=== PATIENT | female | born 1945 | race Caucasian/White ===

== ENCOUNTER 2016-07-26 07:04 | Day surgery (SDC) | payer MEDICARE, OTHER ==
[~2016-07-26] VITALS: Ht 154.9 cm; Wt 52.3 kg
--- NOTE | ~2016-07-26 | OP ---
PATIENT NAME: IRVIN ACOSTA MEDICAL RECORD: [id number] :47 LOCATION:D.OPS ADMISSION DATE: SURGEON: SONDRA GOTTLIEB DO DATE OF OPERATION: 07/26/2016 PROCEDURE: EGD with biopsies. INDICATIONS FOR PROCEDURE: Epigastric abdominal pain, diarrhea, heartburn, nausea, gas and bloating. SCOPE: Olympus video gastroscope. MEDICATIONS: Propofol 80 mg IV per anesthesia. ESTIMATED BLOOD LOSS: Minimal. FINDINGS: Informed consent was given. The patient was made comfortable with the above medication. After reaching an adequate level of sedation by slow IV push, the patient was placed on her left side. The endoscope was then advanced under direct visualization through the mouth to the second portion of the duodenum. The upper, middle, and lower thirds of the esophagus appeared normal. At the GE junction, there was some evidence of mild LA class A reflux induced esophagitis. The endoscope was advanced through the GE junction and retroflexed to view the cardia, where a large hiatal hernia was visualized. This was a sliding type hernia, which measured approximately 7 cm in length. The fundus and body of the stomach appeared normal. In the antrum, there was some granularity and erythema consistent with possible gastritis. Random biopsies were taken from the antrum, incisura, and body of the stomach to rule out H. pylori and to submit for histology. The scope was advanced beyond the pylorus into the duodenum where the bulb and second portion of the duodenum appeared normal. Random biopsies were taken of the small bowel. Scope was then withdrawn from the patient. The patient tolerated the procedure well and there were no complications. IMPRESSION: 1. Reflux esophagitis grade A. 2. Large, approximately 7 cm, hiatal hernia involving the cardia. 3. Erythema and granularity consistent with gastritis with biopsies pending. 4. Normal duodenum. Biopsies taken. PLAN AND RECOMMENDATIONS: 1. Discharge home when recovery parameters are met. 2. Continue current medications. 3. Gastroesophageal reflux disease diet and reflux precautions. 4. Recommend a low FODMAP diet regarding the gas and bloating. 5. Consider probiotics. 6. Recommend supplementing diet with fiber 1-2 tablespoons daily. TRANSINT:[id number] Voice Confirmation ID: [id number] DOCUMENT ID: [id number] OPERATIVE REPORT [id number] KARLACORYHoward Landaverde SONDRA GOTTLIEB DO CC: [id number] DICTATION DATE: 07/26/16 0944 [employer] MANAGER: 07/26/16 1722 [facility] 07/26/16 [facility] [address] [id number]
[~2016-07-26 07:04] MED LIST: ASPIRIN325 MG PO; KLONOPIN1 MG PO; LEXAPRO10 MG PO; NICODERM C1 PATCH .1; NORVASC10 MG PO; PLAVIX75 MG PO; PREMARIN0.3 MG PO; PROTONIX40 MG PO; SYNTHROID50 MCG PO; TOPROL XL100 MG PO; ZETIA10 MG PO
[2016-07-26] MEDS ORDERED: VENTOLIN HFA18 GM INH (07:50)
[2016-07-26] MEDS ORDERED: NITROQUICK0.4 MG (07:51)
[2016-07-26] MEDS ORDERED: LAMISIL250 MG PO (07:52)
[2016-07-26 07:57] VITALS: BP 142/68; Ht 154.9 cm; Wt 52.3 kg
[2016-07-26 08:44] LABS: HEMATOCRIT 39.1 % (36.0-48.0); HEMOGLOBIN 12.9 g/dL (12-16); MCH 31.2 pg (26.0-34.0); MCV 94.7 fL (80.0-100.0); MEAN PLATELET VOLUME 9.8 fL (7.4-10.4); RBC 4.13 10x6/uL (4.00-5.40); RDW 12.7 % (11.5-14.5); WBC 6.2 10x3/uL (4.8-10.8)
[2016-07-26] MEDS ORDERED: ZOFRAN ODT4 MG/UDTAB PO (11:48)
--- NOTE | 2016-07-26 15:07 | NUR ---
1140 DRESSED, AWAKE & ALERT SITTING UP IN CHAIR AT BEDSIDE. GIVEN DISCHARGE INFORMATION INCLUDING: MED REC, RX: ZOFRAN ODT, SHEET LISTING NSAIDS TO AVOID, REFLUX ESOPHAGITIS/HIATEL HERNIA DIET, & DISCHARGE INSTRUCTIONS SHEET POST ENDOSCOPIC PROCEDURES INCLUDING DATE & TIME TO ARIVE FOR GASTRIC EMPTYING SCAN & NPO INSTRUCTIONS. PT VOICED UNDERSTANDING. TO PRIVATE CAR BY [employer] BY THIS NURSE. HOME WITH MALE FRIEND. Bert CLEMENTS R.N.
== END 2016-07-26 11:40 | disposition home or self-care (01) ==
LOC: D.OPS 07:04
PROVIDERS: Anesthesiology
DX: R10.13 Epigastric pain (principal); R19.7 Diarrhea, unspecified; R12 Heartburn; R11.0 Nausea; K44.9 Diaphragmatic hernia without obstruction or gangrene; K21.0 Gastro-esophageal reflux disease with esophagitis; R14.3 Flatulence; Z01.812 Encounter for preprocedural laboratory examination

== ENCOUNTER → 2016-07-30 13:07 | Outpatient (CLI) | payer MEDICARE, OTHER ==
[2016-07-26 07:57] VITALS: BMI 21.7
[~2016-07-30 13:07] MED LIST changes: +LAMISIL250 MG PO; +NITROQUICK0.4 MG; +VENTOLIN HFA18 GM INH; +ZOFRAN ODT4 MG/UDTAB PO
== END | disposition home or self-care (01) ==
LOC: D.NM 13:07
DX: K21.9 Gastro-esophageal reflux disease without esophagitis (principal)

== ENCOUNTER 2016-08-05 11:12 | Day surgery (SDC) | payer MEDICARE, OTHER ==
[~2016-08-05] VITALS: Ht 154.9 cm; Wt 52.3 kg
--- NOTE | ~2016-08-05 | OP ---
PATIENT NAME: ALE ACOSTA MEDICAL RECORD: [id number] :47 LOCATION:D.OPS ADMISSION DATE: SURGEON: SONDRA GOTTLIEB DO DATE OF OPERATION: 08/05/2016 PROCEDURE: Colonoscopy with cold forceps biopsy. INDICATIONS FOR PROCEDURE: Diverticulosis of the colon, personal history of colon polyps, gas and bloating, abnormal bowel sounds. SCOPE: Olympus video pediatric colonoscope. MEDICATIONS: Propofol 200 mg IV per anesthesia. WITHDRAWAL TIME: 10 minutes. ESTIMATED BLOOD LOSS: Minimal. COMPLICATIONS: None. FINDINGS: Informed consent was given. The patient was made comfortable with the above medication. After reaching an adequate level of sedation by slow IV push, the patient was placed on her left side. A digital rectal examination was performed, which was normal. The endoscope was then advanced under direct visualization through the anus to the cecum, evidenced by the appendiceal orifice and ileocecal valve. The scope was then slowly withdrawn and the mucosa was carefully examined. In the descending and sigmoid colon, there was evidence of mild diverticulosis consisting of small mouth diverticula. In the sigmoid colon, there was a small, benign appearing sessile polyp measuring approximately 3-4 mm in size, which was removed with cold forceps in 1 piece and completely retrieved. Retroflexion was performed in the rectum, and there was evidence of small nonbleeding internal hemorrhoids. The endoscope was then withdrawn from the patient. The patient tolerated the procedure well and there were no complications. IMPRESSION: 1. Mild diverticulosis of the left side of the colon. 2. Small sessile, benign appearing polyp in the sigmoid colon, removed with cold forceps. 3. Small, nonbleeding internal hemorrhoids. PLAN AND RECOMMENDATIONS: 1. Discharge home when recovery parameters are met. 2. Continue current medications. 3. Supplement diet with Metamucil or other fiber powder 1-2 tablespoons daily to maintain regular soft bowel movements. 4. Continue current medications. 5. Follow up in GI clinic as needed. 6. Recall colonoscopy dependent on results of polyps removed. TRANSINT:[id number] Voice Confirmation ID: [id number] DOCUMENT ID: [id number] OPERATIVE REPORT [id number] ALE ACOSTA NIKHILSONDRA MORRISON Rip VAUGHN CC: [id number] DICTATION DATE: 08/05/16 1554 FINAL ARMATURE TESTER: 08/06/16 0026 [facility] 08/05/16 [facility] [address] [facility] [address]
[2016-08-05 12:27] LABS: BASOPHILS 0.4 % (0-2); EOSINOPHILS 1.3 % (0-7); HEMATOCRIT 41.6 % (36.0-48.0); HEMOGLOBIN 14.1 g/dL (12-16); IMMATURE GRANULOCYTES 0.1 % (0-5); LYMPHOCYTES 28.7 % (15-50); MCH 31.5 pg (26.0-34.0); MCHC 33.9 g/dL (31.0-37.0); MCV 93.1 fL (80.0-100.0); MONOCYTES 9.6 % (2-11); NEUTROPHILS 59.9 % (40-80); PLATELET COUNT 217 10x3/uL (130-400); RBC 4.47 10x6/uL (4.00-5.40); RDW 12.6 % (11.5-14.5)
[2016-08-05 12:36] LABS: INR 1.04 (0.85-1.17); PROTIME 13.4 SECONDS (11.6-15.0)
[2016-08-05 12:37] LABS: ANION GAP 13.5 mmol/L (8-16); APTT 29.3 SECONDS (22.8-39.4); CALCIUM 9.7 mg/dL (8.5-10.1); CARBON DIOXIDE 27.6 mmol/L (21.0-32.0); CREATININE - SERUM 1.3 mg/dL (0.6-1.3); POTASSIUM - SERUM 4.1 mmol/L (3.5-5.1)
[2016-08-05 13:52] VITALS: BP 143/71; Ht 154.9 cm; Wt 52.3 kg
--- NOTE | 2016-08-05 19:09 | NUR ---
IV DC WITH CATHER TIP INTACT
== END 2016-08-05 17:05 | disposition home or self-care (01) ==
LOC: D.OPS 11:12
PROVIDERS: Anesthesiology
DX: K57.30 Diverticulosis of large intestine without perforation or abscess without bleeding (principal); D12.5 Benign neoplasm of sigmoid colon; K64.8 Other hemorrhoids; R14.3 Flatulence; Z01.812 Encounter for preprocedural laboratory examination